=== PATIENT | female | born 1980 | race Two or more races ===

== ENCOUNTER 2018-05-20 13:14 | Emergency (ER) | payer SELFPAY ==
[2018-05-20] MEDS ORDERED: ONDANSETRON 4 MG TAB.RAPDIS PO ONE (14:10)
--- NOTE | 2018-05-20 14:12 | ER Document Report ---
ED Medical Screen (RME) - General Chief Complaint: Headache Stated Complaint: ABDOMINAL PAIN Time Seen by Provider: 05/20/18 14:09 Mode of Arrival: Ambulatory Information source: Patient Notes: Patient is a Lithuanian speaking. Ricardo was used for interpretation. Patient states that she has a one-week history of right pelvic pain. She describes it as a cramping sensation. She states that she has been having increased pain over the last couple of days. Now the pain is radiating into the right flank. She is having associated nausea, vomiting, diarrhea, dysuria, increased urgency, increased frequency. Patient denies being . She is been taking Advil and this alleviates the pain but the pain keeps returning when the medication wears off. She denies any exacerbating factors. Patient does not have any medical problems. No surgeries on her abdomen. She is not allergic to any medications. She is not taking any medications other than the Advil. Her last dose was this morning. I have greeted and performed a rapid initial assessment of this patient. A comprehensive ED assessment and evaluation of the patient, analysis of test results and completion of the medical decision making process will be conducted by additional ED providers. PHYSICAL EXAMINATION: GENERAL: Well-appearing, well-nourished and in no acute distress. HEAD: Atraumatic, normocephalic. EYES: Pupils equal round extraocular movements intact, conjunctiva are normal. ENT: Nares patent NECK: Normal range of motion LUNGS: No respiratory distress Musculoskeletal: Normal range of motion. Right CVA tenderness. NEUROLOGICAL: Normal speech, normal gait. TRAVEL OUTSIDE OF THE [place] IN LAST 30 DAYS: No - Related Data Allergies/Adverse Reactions: No Known Allergies Allergy (Unverified 05/20/18 13:16) Past Medical History - Social History Chew tobacco use (# tins/day): No Frequency of alcohol use: None Drug Abuse: None Neurological Medical History: Reports: Hx Migraine Renal/ Medical History: Denies: Hx Peritoneal Dialysis Physical Exam - Vital signs Vitals: Temp Pulse Resp BP Pulse Ox 98 F 82 16 131/92 H 99 05/20/18 13:23 05/20/18 13:23 05/20/18 13:23 05/20/18 13:23 05/20/18 13:23 Course - Vital Signs Vital signs: Temp Pulse Resp BP Pulse Ox 98 F 82 16 131/92 H 99 05/20/18 13:23 05/20/18 13:23 05/20/18 13:23 05/20/18 13:23 05/20/18 13:23
[2018-05-20 15:10] LABS: ABSOLUTE BASOPHILS # (AUTO) 0.1 10^3/uL (0.0-0.2); ABSOLUTE EOSINOPHILS # (AUTO) 0.3 10^3/uL (0.0-0.6); ABSOLUTE LYMPHOCYTES (AUTO) 2.6 10^3/uL (0.5-4.7); ABSOLUTE MONOCYTES (AUTO) 0.5 10^3/uL (0.1-1.4); ABSOLUTE NEUT (AUTO) 6.2 10^3/uL (1.7-8.2); BASOPHILS % (AUTO) 0.9 % (0-2); EOSINOPHILS % (AUTO) 3.4 % (0-6); HEMATOCRIT 46.1 % (36.0-47.0); HEMOGLOBIN 15.6 g/dL (12.0-15.5); LYMPHOCYTES % (AUTO) 26.8 % (13-45); MEAN CORPUSCULAR HEMOGLOBIN 28.8 pg (27.0-33.4); MEAN CORPUSCULAR HGB CONC 33.8 g/dL (32.0-36.0); MEAN CORPUSCULAR VOLUME 85 fl (80-97); MONOCYTES % (AUTO) 5.5 % (3-13); PLATELET COUNT 277 10^3/uL (150-450); RED BLOOD COUNT 5.41 10^6/uL (3.72-5.28); RED CELL DISTRIBUTION WIDTH 13.5 % (11.5-14.0); SEGMENTED NEUTROPHILS % (AUTO) 63.4 % (42-78); TOTAL CELLS COUNTED % (AUTO) 100 %; WHITE BLOOD COUNT 9.9 10^3/uL (4.0-10.5)
[2018-05-20 15:24] LABS: AMORPHOUS SEDIMENT,URINE TRACE /HPF; APPEARANCE,URINE SLIGHTLY-CLOUDY; BILIRUBIN,URINE NEGATIVE (NEGATIVE); COLOR,URINE YELLOW; GLUCOSE, URINE NEGATIVE (NEGATIVE); KETONES,URINE NEGATIVE (NEGATIVE); LEUKOCYTE ESTERASE,URINE LARGE (NEGATIVE); NITRITE,URINE POSITIVE (NEGATIVE); PROTEIN,URINE 30 mg/dL (NEGATIVE); URINE SPECIFIC GRAVITY 1.009; UROBILINOGEN,URINE NEGATIVE mg/dL (<2.0)
[2018-05-20 15:32] LABS: ALANINE AMINOTRANSFERASE 24 U/L (9-52); ALBUMIN 5.3 g/dL (3.5-5.0); ALKALINE PHOSPHATASE 81 U/L (38-126); ANION GAP 13 (5-19); ASPARTATE AMINO TRANSFERASE 23 U/L (14-36); BILIRUBIN,DIRECT 0.2 mg/dL (0.0-0.4); BILIRUBIN,TOTAL 0.6 mg/dL (0.2-1.3); BLOOD UREA NITROGEN 11 mg/dL (7-20); CALCIUM 10.5 mg/dL (8.4-10.2); CARBON DIOXIDE 28 mmol/L (22-30); CHLORIDE 103 mmol/L (98-107); GLUCOSE 93 mg/dL (75-110); POTASSIUM 4.9 mmol/L (3.6-5.0); SODIUM 143.8 mmol/L (137-145); TOTAL PROTEIN 8.9 g/dL (6.3-8.2)
[2018-05-20] MEDS ORDERED: NORMAL SALINE 1000 ML 1,000 ML IV ONE (17:11)
[2018-05-20] MEDS ORDERED: METOCLOPRAMIDE HCL INJ/PF 10 MG/2 ML SDV IV ONE (17:12)
[2018-05-20] MEDS ORDERED: KETOROLAC TROMETHAMINE INJ/PF 30 MG/1 ML SDV IV ONE (17:14)
--- NOTE | 2018-05-20 17:20 | ER Document Report ---
ED General - General Chief Complaint: Headache Stated Complaint: ABDOMINAL PAIN Time Seen by Provider: 05/20/18 14:09 Mode of Arrival: Ambulatory Information source: Patient Notes: Patient is Slovenian-speaking TRAVEL OUTSIDE OF THE [place] IN LAST 30 DAYS: No - HPI Patient complains to provider of: Right lower quadrant abdominal pain and right flank pain. Also headache Onset: Other - Past couple of weeks... Worse today Onset/Duration: Gradual Quality of pain: Sharp Severity: Severe Context: Diarrhea and constipation off and on Associated symptoms: denies: Chills, Fever Exacerbated by: Denies Relieved by: Denies Similar symptoms previously: No Recently seen / treated by doctor: No Notes: Patient is a 37-year-old female coming in today with chief complaint of horrible headache as well as right sided abdominal pain. She has been throwing up and having nausea. No fevers or shaking chills. Patient reports what sounds like an ongoing problem with colicky abdominal pain and times of diarrhea and other times with constipation. Does not have a primary care provider. Does not report any chronic medical problems. - Related Data Allergies/Adverse Reactions: No Known Allergies Allergy (Unverified 05/20/18 13:16) Past Medical History - General Information source: Patient - Social History Smoking Status: Never Smoker Chew tobacco use (# tins/day): No Frequency of alcohol use: None Drug Abuse: None Family History: Reviewed & Not Pertinent Patient has suicidal ideation: No Patient has homicidal ideation: No Neurological Medical History: Reports: Hx Migraine Renal/ Medical History: Denies: Hx Peritoneal Dialysis Review of Systems - Review of Systems Notes: Constitutional: No fevers. No chills. EENT: No eye redness. No eye pain. No ear pain. No sore throat. Cardiovascular: No chest pain. No palpitations. Respiratory: No cough. No shortness of breath. No respiratory distress. Gastrointestinal: Colicky abdominal pain. Occasional diarrhea. Occasional constipation. Right lower quadrant pain today Genitourinary: Atraumatic. No lesions. No pain. No discharge. Musculoskeletal: Atraumatic. No swelling. No deformities. Skin: No rash or lesions. Lymphatic: No swollen lymph nodes. Neurologic: No headache. No syncope. Psychiatric: No suicidal or homicidal ideation. Physical Exam - Vital signs Vitals: Temp Pulse Resp BP Pulse Ox 98 F 82 16 131/92 H 99 05/20/18 13:23 05/20/18 13:23 05/20/18 13:23 05/20/18 13:23 05/20/18 13:23 - Notes Notes: General: Well-developed, well-nourished. In no acute distress. Non-toxic appearing. Cardiac: Well-perfused. Regular rate and rhythm. No murmurs, rubs, or gallops. Pulmonary: No respiratory distress. No cyanosis. Bilateral lung fiels are clear to auscultation. Abdominal: Right middle and right lower quadrant abdomen tender to palpate. No guarding or rebound. Bowel sounds are present all 4 quadrants. HEENT: Head is atraumatic. Conjunctivae not reddened. No tearing. PERRL. EOMI. Orbits atraumatic. No periorbital swelling or erythema. Oropharynx is without erythema, swelling, or exudates. Neck: Supple. No adenopathy. No meningismus. Dermatologic: Warm with good turgor. No rash. Atraumatic. Chest: Atraumatic. No chest wall tenderness to palpation. Musculoskeletal: Moves all extremities well. No range of motion deficits. no muscular or joint tenderness. No paraspinal muscle tenderness. no midline spinal tenderness or step-off. Genitourinary: Examination deferred Neurologic: No gross neurologic deficits. Psychiatric: Normal mood. Course - Re-evaluation Re-evalutation: 05/20/18 17:21 Patient has been evaluated. Appropriate orders have been placed. Patient will be routinely reassessed as results start to come in. Patient has urinary tract infection. However she also has tenderness to palpation in the right lower quad rant and the right side of her back. Differential includes appendicitis and kidney stones. With her vomiting I does want to make sure that there is not something more serious going on. 05/20/18 20:40 UA shows UTI. Patient's headache is better. We will treat her for tension headaches. CT abdomen and pelvis is unremarkable. - Vital Signs Vital signs: Temp Pulse Resp BP Pulse Ox 98 F 82 16 131/92 H 99 05/20/18 13:23 05/20/18 13:23 05/20/18 13:23 05/20/18 13:23 05/20/18 13:23 - Laboratory Result Diagrams: 05/20/18 14:58 05/20/18 14:58 Laboratory results interpreted by me: 05/20/18 05/20/18 05/20/18 14:58 14:58 14:58 RBC 5.41 H Hgb 15.6 H Calcium 10.5 H Total Protein 8.9 H Albumin 5.3 H Urine Protein 30 H Urine Blood LARGE H Urine Nitrite POSITIVE H Ur Leukocyte Esterase LARGE H - Diagnostic Test Radiology reviewed: Reports reviewed Discharge - Discharge Clinical Impression: Chronic headaches Qualifiers: Headache type: unspecified Intractability: not intractable Qualified Code(s): R51 - Headache UTI (urinary tract infection) Qualifiers: Urinary tract infection type: site unspecified Hematuria presence: without hematuria Qualified Code(s): N39.0 - Urinary tract infection, site not specified Disposition: HOME, SELF-CARE Instructions: Cephalexin ([facility]), Urinary Tract Infection ([facility]), Headache ([facility]) Prescriptions: Butalb/Acetaminophen/Caffeine [Fioricet 50-300-40 mg Capsule] 1 cap PO Q6HP PRN #20 cap PRN Reason: Cephalexin [Keflex] 500 mg PO QID #28 capsule Referrals: [facility] [Provider Group] - Follow up as needed Print Language: Slovenian
--- NOTE | 2018-05-20 20:23 | RADIOLOGY REPORT (SQ) ---
CT ABDOMEN WITH IV CONTRAST HISTORY: Right lower quadrant pain. COMPARISON: None. TECHNIQUE: CT scan of the abdomen and pelvis with IV contrast. This exam was performed according to our departmental dose-optimization program, which includes automated exposure control, adjustment of the mA and/or kV according to patient size and/or use of iterative reconstruction technique. Motion artifact limits evaluation. FINDINGS: The lung bases are clear. No pleural or pericardial effusions. There is no hiatal hernia. The liver, gallbladder, spleen, pancreas, adrenal glands, and kidneys are grossly unremarkable. There is a nonspecific hypodense lesion in the left kidney inferior pole which may be a cyst. The collecting systems are opacified with contrast. The pelvic organs are unremarkable. No small bowel obstruction. Appendix is normal. There is no evidence of acute diverticulitis. No intraperitoneal free fluid or free air is seen. No acute osseous findings. The aorta is normal caliber. No body wall hernia is seen. IMPRESSION: No acute abdominal or pelvic pathology.
[2018-05-20 21:02] VITALS: BP 112/86
== END 2018-05-20 21:05 | disposition home or self-care (01) ==
LOC: ER 13:14
DX: N39.0 Urinary tract infection, site not specified (principal); R51 Headache; R10.9 Unspecified abdominal pain; R10.31 Right lower quadrant pain
CPT/HCPCS: 99284; 96361; 96374; 96375; 36415; 83690; 85025; 81025; 80053; 81001; 74160; S0119; J1885; J2765; J7030